=== PATIENT | male | born 1985 | race African-American/Black ===

== ENCOUNTER 2018-10-03 16:49 | Emergency (ER) | payer OTHER ==
[2018-10-03] MEDS: IBUPROFEN 800 MG TAB PO (19:58)
== END 2018-10-03 20:39 | disposition home or self-care (01) ==
LOC: FTE 16:49
DX: S83.005A Unspecified dislocation of left patella, initial encounter (principal); F17.200 Nicotine dependence, unspecified, uncomplicated; W50.0XXA Accidental hit or strike by another person, initial encounter; Y92.310 Basketball court as the place of occurrence of the external cause
CPT/HCPCS: 29505; 73562; 99283-25